=== PATIENT | female | born 1965 | race Caucasian/White ===

== ENCOUNTER 2018-07-30 06:26 | Emergency (ER) | payer MEDICAID ==
[~2018-07-30] VITALS: Ht 167.6 cm; Wt 65.0 kg
[2018-07-30 13:45] VITALS: BP 125/79
== END 2018-07-30 14:04 | disposition home or self-care (01) ==
LOC: ER 06:26
DX: R53.1 Weakness (principal); E86.0 Dehydration; F32.9 Major depressive disorder, single episode, unspecified; Z59.0 Homelessness
CPT/HCPCS: 99283